=== PATIENT | female | born 1980 | race Caucasian/White ===

== ENCOUNTER → 2019-06-11 | Outpatient (CLI) | payer OTHER ==
[~2019-06-11] MED LIST: BIRTH CONTROL; IBUP800 PO; VALA500 PO
[2019-06-12 09:53] LABS: Candida species (DNA Probe) Negative (NEGATIVE); G. vaginalis (DNA Probe) Positive (NEGATIVE); T. vaginalis (DNA Probe) Negative (NEGATIVE)
[2019-06-15 01:06] LABS: CHLAMYDIA TRACHOMATIS, NAA Negative (Negative); NEISSERIA GONORRHOEAE, NAA Negative (Negative)
== END | disposition home or self-care (01) ==
LOC: LAB SHORT 16:23 → LAB 16:23
PROVIDERS: Obstetrics & Gynecology
DX: N89.8 Other specified noninflammatory disorders of vagina (principal); Z20.2 Contact with and (suspected) exposure to infections with a predominantly sexual mode of transmission
CPT/HCPCS: 87480; 87491; 87510; 87591; 87660

== ENCOUNTER → 2020-09-15 | Outpatient (CLI) | payer OTHER ==
[2020-09-16 09:25] LABS: Candida species (DNA Probe) Negative (NEGATIVE); G. vaginalis (DNA Probe) Positive (NEGATIVE); T. vaginalis (DNA Probe) Negative (NEGATIVE)
== END | disposition home or self-care (01) ==
LOC: LAB 12:00 → LAB SHORT 12:00
PROVIDERS: Obstetrics & Gynecology
DX: N89.8 Other specified noninflammatory disorders of vagina (principal)
CPT/HCPCS: 87480; 87510; 87660

== ENCOUNTER 2020-12-28 12:27 | Emergency (ER) | payer OTHER ==
[~2020-12-28] VITALS: Ht 167.6 cm; Wt 81.7 kg
== END 2020-12-28 13:47 | disposition home or self-care (01) ==
LOC: ER 12:27
DX: T24.211A Burn of second degree of right thigh, initial encounter (principal); T31.0 Burns involving less than 10% of body surface; F17.200 Nicotine dependence, unspecified, uncomplicated; Z23 Encounter for immunization; Z79.3 Long term (current) use of hormonal contraceptives; X08.8XXA Exposure to other specified smoke, fire and flames, initial encounter
CPT/HCPCS: 90471; 90714; 99282-25

== ENCOUNTER → 2021-06-30 | Outpatient (CLI) | payer OTHER ==
[2021-07-02 02:10] LABS: CHLAMYDIA TRACHOMATIS, NAA Negative (Negative)
== END | disposition home or self-care (01) ==
LOC: LAB 10:46 → LAB SHORT 10:46
PROVIDERS: Obstetrics & Gynecology
DX: Z11.3 Encounter for screening for infections with a predominantly sexual mode of transmission (principal); N89.8 Other specified noninflammatory disorders of vagina; R30.0 Dysuria
CPT/HCPCS: 87086; 87491; 87591

== ENCOUNTER 2022-04-30 07:50 | Day surgery (SDC) | payer OTHER ==
[~2022-04-30] VITALS: Ht 167.6 cm; Wt 77.9 kg
[~2022-04-30 07:50] MED LIST changes: +VALACYCLOVIR500 M1 PO
--- NOTE | 2022-04-30 08:24 | NUR ---
Ambulatory in Day SurgeryPre-Op teaching done. Pt verbalizes understanding. History, Chart, Medications and Allergies reviewed before start of procedure.Patient States Post-Procedure ride home has been arranged. Patient confirms NPO status and agrees with scheduled surgery.
--- NOTE | 2022-04-30 12:30 | NUR ---
Patient up to Ambulate independently. Gait steady. Discharge instructions reviewed with patient. Patient verbalizes understanding. Copy given to patient to take home, [employer]RIEND. Patient States Post-Procedure ride home has been arranged. Discharged via wheelchair to private car for ride home. PT REPORTS ABLE TO VOID BEFORE LEAVING. PT DECLINED PAIN MEDICATION AND SNACK MULTIPLE TIMES. PT WATER PER HER REQ.
== END 2022-04-30 12:30 | disposition home or self-care (01) ==
LOC: ORSCMMR 07:50 → ORD 09:30 → ORSCMMR 09:30
PROVIDERS: Obstetrics & Gynecology
PROC: 0U5B8ZZ Destruction of Endometrium, Via Natural or Artificial Opening Endoscopic (ICD-10-PCS; principal; 2022-04-30 09:30)
PROC: 0UT74ZZ Resection of Bilateral Fallopian Tubes, Percutaneous Endoscopic Approach (ICD-10-PCS; principal; 2022-04-30 09:30)
PROC: 0UT14ZZ Resection of Left Ovary, Percutaneous Endoscopic Approach (ICD-10-PCS; principal; 2022-04-30 09:30)
DX: N92.1 Excessive and frequent menstruation with irregular cycle (principal); Z30.2 Encounter for sterilization; N83.8 Other noninflammatory disorders of ovary, fallopian tube and broad ligament; K66.0 Peritoneal adhesions (postprocedural) (postinfection); N83.12 Corpus luteum cyst of left ovary; F17.210 Nicotine dependence, cigarettes, uncomplicated
CPT/HCPCS: 88305; A9270; J1100; J1885; J2405; J2704; J2795; J3010; J7120

== ENCOUNTER 2023-10-10 06:12 | Day surgery (SDC) | payer BC ==
[~2023-10-10] VITALS: Ht 167.6 cm; Wt 80.2 kg
[~2023-10-10 06:12] MED LIST changes: +Lactated Ringer's 1,000 ML IV ONE
[2023-10-10] MEDS ORDERED: ALLERCLEAR10 MG PO (06:48)
[2023-10-10] MEDS ORDERED: NS 0 ML IV ONE (06:54)
[2023-10-10] MEDS ORDERED: CeFAZolin Sodium 2,000 MG VIAL ONE (06:54)
[2023-10-10] MEDS ORDERED: FentaNYL Citrate 50 MCG/ML 2 ML Injection ONE (06:56)
[2023-10-10] MEDS ORDERED: propofoL 0 ML IV ONE (06:56)
[2023-10-10] MEDS ORDERED: Lactated Ringer's 1,000 ML IV ONE (07:03)
[2023-10-10] MEDS ORDERED: Ropivacaine 0.5% HCl/Pf 5 MG/ML 20ML VIAL ONE (07:32)
[2023-10-10] MEDS ORDERED: EPINEPhrine HCl 1 MG/ML 1ML Amp ONE (07:32)
[2023-10-10] MEDS ORDERED: Triamcinolone Inj Susp 40 MG / ML 1ML Vial ONE (07:32)
--- NOTE | 2023-10-10 07:40 | NUR ---
10/10/23 0740 Margo Wei [id number]: PATIENT REFUSED PRN VERSED ORDERED BY DR JACKSON
[2023-10-10 08:55] VITALS: BP 122/86
== END 2023-10-10 08:40 | disposition home or self-care (01) ==
LOC: ORSCSDS 06:12
PROVIDERS: Orthopaedic Surgery
PROC: 01N50ZZ Release Median Nerve, Open Approach (ICD-10-PCS; principal; 2023-10-10 07:30)
PROC: 0PBF0ZZ Excision of Right Humeral Shaft, Open Approach (ICD-10-PCS; principal; 2023-10-10 07:30)
DX: G56.01 Carpal tunnel syndrome, right upper limb (principal); M77.12 Lateral epicondylitis, left elbow; F17.210 Nicotine dependence, cigarettes, uncomplicated
CPT/HCPCS: J0171; J0690; J2704; J2795; J3010; J3301; J7120

== ENCOUNTER 2025-02-11 19:37 | Emergency (ER) | payer BC ==
[~2025-02-11] VITALS: Ht 167.6 cm; Wt 76.2 kg
[~2025-02-11 19:37] MED LIST changes: +ALLERCLEAR10 MG PO; -Lactated Ringer's 1,000 ML IV ONE
[2025-02-11 20:10] LABS: Source, Urine Clean Catch
[2025-02-11 20:26] LABS: BASOPHILS ABSOLUTE AUTO 0.04 K/mm3 (0.00-0.23); BASOPHILS PERCENT AUTO 0 % (0-2); EOSINOPHILS ABSOLUTE AUTO 0.05 K/mm3 (0.00-0.68); EOSINOPHILS PERCENT AUTO 0 % (0-6); Hematocrit 39.8 % (33.0-51.0); Hemoglobin 14.1 g/dL (11.5-16.0); IMMATURE GRAN ABSOLUTE AUTO 0.04 K/mm3 (0.00-0.10); IMMATURE GRAN PERCENT AUTO 0 % (0-1); LYMPHOCYTES ABSOLUTE AUTO 2.60 K/mm3 (0.84-5.20); LYMPHOCYTES PERCENT AUTO 19 % (21-46); MONOCYTES ABSOLUTE AUTO 0.91 K/mm3 (0.16-1.47); MONOCYTES PERCENT AUTO 7 % (4-13); Mean Corpuscular HGB Conc 35.4 g/dL (31.5-36.5); Mean Corpuscular Volume 97 fL (80-100); NEUTROPHILS ABSOLUTE AUTO 10.01 K/mm3 (1.96-9.15); NEUTROPHILS PERCENT AUTO 73 % (41-73); NRBC ABSOLUTE 0.00 K/mm3 (0.00-0.02); NRBC Auto 0.0 /100 WBC (0.0-0.2); Platelet Count 220 K/mm3 (150-400); RDW Coefficient Variation 12.4 % (11.7-14.2); RDW Standard Deviation 44.0 fL (35.1-46.3)
[2025-02-11 20:29] LABS: Glucose Qualitative, Urine Neg (Neg); Ketones, Urine Neg (Neg); Leukocyte Esterase, Urine 3+ (Neg); Protein, Urine 3+ (Neg); Specific Gravity, Urine 1.010 (1.003-1.022); Urobilinogen, Urine 3+ (Normal)
[2025-02-11 20:30] LABS: Bilirubin, Urine 3+ (Neg); Color, Urine Orange (P-Yellow)
[2025-02-11 20:31] LABS: White Blood Cells, Urine 50-100 /hpf (0-5)
[2025-02-11 20:48] LABS: Alanine Aminotransfer (ALT/SGP 35.0 U/L (12-78); Albumin, Blood 3.6 g/dL (3.4-5.0); Albumin/Globulin Ratio 1.2 (0.8-1.8); Anion Gap 7.0 mmol/L (3-11); Aspartate Aminotrans (AST/SGOT 38.0 U/L (12-37); Bilirubin, Total 0.6 mg/dL (0.1-1.0); Blood Urea Nitrogen 12.0 mg/dL (8-24); CO2, Blood 30.0 mmol/L (21-32); Calcium, Blood 9.2 mg/dL (8.5-10.1); Chloride, Blood 103.0 mmol/L (98-108); Creatinine, Blood 0.84 mg/dL (0.40-1.00); Globulin, Blood 3.1 g/dL (2.2-4.0); Glucose, Blood 141.0 mg/dL (70-99); Potassium, Blood 3.7 mmol/L (3.5-5.5); Sodium, Blood 136.0 mmol/L (136-145); Total Protein, Blood 6.7 g/dL (6.4-8.2)
[2025-02-11 21:55] VITALS: BP 142/67
[2025-02-11] MEDS ORDERED: CEFP200 PO (22:02)
== END 2025-02-11 22:23 | disposition home or self-care (01) ==
LOC: ER 19:37
PROVIDERS: Emergency Medicine; Student in an Organized Health Care Education/Training Program
DX: N12 Tubulo-interstitial nephritis, not specified as acute or chronic (principal); D72.829 Elevated white blood cell count, unspecified; F17.200 Nicotine dependence, unspecified, uncomplicated
CPT/HCPCS: 74177; 80053; 81001; 85025; 87077; 87086; 87186; 99284-25; A9270; Q9967